=== PATIENT | female | born 1995 | race Caucasian/White ===

== ENCOUNTER 2023-05-11 19:21 | Inpatient (IN) ==
[2023-05-11] MEDS ORDERED: ALBUT/IPRATROP 3MG/0.5MG NEB 3 ML VIAL ONE (19:26)
[2023-05-11] MEDS ORDERED: ALBUT/IPRATROP 3MG/0.5MG NEB 3 ML VIAL NEB ONE (19:29)
[2023-05-11] MEDS ORDERED: SODIUM CHLORIDE 0.9% 500 ML IV SCH (19:30)
[2023-05-11] MEDS ORDERED: STAT IV STA (19:30)
[2023-05-11] MEDS ORDERED: diphenhydrAMINE 50 MG/ML VIAL ONE (19:35)
[2023-05-11] MEDS ORDERED: ONDANSETRON INJ 2 MG/ML 2 ML VIAL ONE (19:35)
[2023-05-11] MEDS ORDERED: EPINEPHrine INJ 1 MG/ML AMP ONE (19:35)
[2023-05-11] MEDS ORDERED: methylPREDNISolone 125 MG/2 ML VIAL ONE (19:35)
--- NOTE | 2023-05-11 19:35 | Emergency Department Note ---
Impression & Plan Anaphylaxis, Allergic reaction, Serious allergic reaction with severe difficult breathing ED Provider Note Provider: Matheus Eddy MD DATE OF SERVICE: 05/11/2023 CHIEF COMPLAINT: Allergic reaction HISTORY OF PRESENT ILLNESS: Patient is a 27-year-old female history of severe allergic reactions presenting here from baseball game via ambulance. Evidently visiting from the [facility]. Severe allergy to peanuts. Reports that she has about 7 different occasions in the recent past and was recently hospitalized last month. Utilize your EpiPen with the onset of allergic symptoms and di fficulty breathing and stridor and throat tightness. Maybe a little bit of nausea and round. To see if steroids as well as additional 0.3 mg IM epinephrine, 120 mg Solu-Medrol, and a DuoNeb. States maybe little improvement. Took 100 mg of oral Benadryl prior to arrival and received additional 50 mg of IV Benadryl for EMS. On arrival she states she is feeling thing and maybe a little bit better but still quite stridulous and states she is having some difficulty breathing. Denies significant rash but may be a bit itchy in the arms. later arrives. Provides additional history. PAST MEDICAL HISTORY: As noted above MEDICATIONS: Reviewed home medications SOCIAL HISTORY: from the [facility] PHYSICAL EXAM: GENERAL: alert and oriented on stretcher sounds somewhat stridorous and appears a bit fatigued. Head: normocephalic and atraumatic EYES: No injection, discharge or icterus. NECK: Trachea midline. Supple. ENT: Mucous membranes pink and moist. Mallampati 4 but no obvious significant edema of the lips or tongue LUNGS: Airway patent. No retractions. Breath sounds clear HEART: Regular tachycardia rate and rhythm. No chest wall tenderness ABDOMEN: Soft and non-tender, without guarding or rebound. SKIN: Acyanotic, warm, dry, with a few scabs on the forearms. EXTREMITIES: Without tenderness or deformity with some slight swelling to the fingers causing her wedding ring to be tight. NEUROLOGICAL: No focal deficits. No aphasia. No facial droop or slurred speech. EK bpm sinus tachycardia. No PVC or PAC. No acute ST segment elevation or depression with some baseline artifact from breathing. QTc 408. CONTINUOUS CARDIAC MONITORING: was ordered and showed a heart rate of 100s-103s bpm in sinus tachycardia Patient's laboratory studies and imaging reviewed. Differential includes Allergic reaction, anaphylaxis, urticaria, Barrios-Red syndrome, toxic epidermal necrolysis, erythema multiforme, contact dermatitis, cellulitis, as well as other pathologies. 1 view chest x-ray per my interpretation: ET tube appropriate placed without luis dence of pneumothorax. Some gaseous distention of the stomach but no free air. ED Intubation, performed by myself after discussion with the patient and her Indication stridor, anaphylaxis The patient was on 6L oxygen via NC prior to the procedure. Suction, airway equipment, RSI drugs, respiratory equipment, and appropriate personnel were prepared prior to the initiation of the procedure. A time out was taken. Induction was performed with 25mg etomidate and 150mg succinylcholine. After observing the clinical benefit of the medications, the airway was easily visualized utilizing a 3 glide scope. A 7.5 size ETT tube was placed atraumatically to 24 cm to the teeth using standard technique. The cuff inflated without signs of malfunction. There were bilateral breath sounds, positive co lormetric change, no gastric sounds, a good capnography waveform, and post procedure pulse oximetry was 100%. Post intubation sedation and paralysis was administered using Versed and fentanyl after initially considering propofol briefly. There were no apparent complications. IMPRESSION/MEDICAL DECISION MAKING: Patient with significant reported history but no records is from out of town. Received 2 doses of IM epinephrine prior to arrival. Still quite stridulous but satting well not hypotensive. Has had a significant amount of antihistamine already and has had full dose steroids already by EMS. Monitor very closely and in short order moved into room B1 for close observation and monitoring. Epinephrine infusion was started to try to help with her symptoms. Over the course of an hour had reported some increased tightness of the throat. Still stridulous and at this point discussed with her and her at bedside options. Do not have heliox as an option at the facility currently to attempt as she has responded to this in the past. As such, feel that rather than wait for any more significant worsening would proceed given her report of worsening throat tightness with intubation for airway protection. She was in agreement. Intubated here without issue. No severe edema in the oropharynx appreciated. Did not desaturate. Postintubation chest x-ray obtained initially presently on propofol drip but avoid any possible allergic response transition to fentanyl and Versed drip. ICU BAIT TIER at bedside. Oxygenating well. Question of some component this could be vocal cord dysfunction however at this time will need to the side of caution and will be monitored overnight in the ICU for improvement. Records request at facility was sent. Discussed with the hospitalist again as well as the ICU BAIT TIER for further care here. Basic blood was obtained with some mild hypokalemia as well as mild leukocytosis. Believe more reactive from the acute reaction and the nebs and steroids she is received. Tryptase was sent off for long-term follow-up. DIAGNOSIS: Anaphylaxis, stridor DISPOSITION: ICU at bedside. Hospitalist will evaluate for further care here at the hospital Critical Care I have personally spent 46 minutes of critical care time in the direct management of this patient. This includes bedside care, interpretation of diagnostic studies, and testing, discussion with consultants, patient, and family members, and other required patient management activities. These 46 minutes is in excess of all separately billable procedures. Past Med/Surg History Medical History (Updated 05/12/23 @ 01:15 by Matheus Eddy M.D.) Allergic reaction Anxiety and depression Encounter for intubation Obesity Social History Smoking Status: Never smoker Hx Alcohol Use: No Hx Substance Use: No Preferred Language: Tajik Communication Ability: Effective Telephone Operator Receptionist Required: No Beliefs That Will Affect Care: None Current Living Situation: Spouse Other Information That Helps Us Care for You: No Feels Safe at Home: Yes Safety Concerns: Feels Safe At This Time Assistive Devices: None Allergies Allergies Allergy/AdvReac Type Severity Reaction Status Date / Time peanut Allergy Severe Anaphylaxis Verified 05/11/23 20:19 soy Allergy Severe Anaphylaxis Verified 05/11/23 20:19 Home Meds Home Medications Medication Instructions Recorded Confirmed albuterol sulfate 90 mcg/actuation 2 puff inhalation Q6 PRN Shortness 05/11/23 05/11/23 aerosol inhaler Of Breath Or Wheezing plxlvsfwgtzvcti-[id number]-GS 10 ml PO Q6 PRN congestion/cough 05/11/23 05/11/23 2 mg-30 mg-10 mg/5 mL oral syrup diphenhydramine HCl 25 mg capsule 25 mg PO Q6 PRN allergies 05/11/23 05/11/23 (Banophen) epinephrine 0.3 mg/0.3 mL 0.3 mg IM ONCE PRN Anaphylaxis 05/11/23 05/11/23 injection, auto-injector hydroxyzine HCl 25 mg tablet 25 mg PO Q6 PRN Anxiety 05/11/23 05/11/23 mirtazapine 15 mg tablet 15 mg PO HS 05/11/23 05/11/23 paroxetine HCl 30 mg tablet 30 mg PO DAILY 05/11/23 05/11/23 Results & Data (ED) Vital Signs Vital Signs - 24 hr 05/11/23 19:33 05/11/23 19:34 05/11/23 20:00 Temperature 37.2 C Temperature Source Axillary Pulse Rate 126 H Pulse Rate [Finger] Respiratory Rate 41 H Respiratory Effort / Characteristics Gasping/Agonal Labored Short of Breath Respiratory Depth Shallow Blood Pressure 133/85 Blood Pressure [Right Arm] Blood Pressure Mean 101 Blood Pressure Mean [Right Arm] Pulse Oximetry 100 100 Oxygen Delivery Method Nasal Cannula Nasal Cannula Oxygen Flow Rate 6 6 Fraction of Inspired Oxygen Sepsis Recent Fever Within 48 Hours No Sepsis New/Unexplained Change in Mental Status No Sepsis Action Taken by Nursing No Action Required End-Tidal CO2 05/11/23 20:02 05/11/23 20:00 05/11/23 20:26 Temperature Temperature Source Pulse Rate Pulse Rate [Finger] 132 H 126 H Respiratory Rate 42 H 42 H Respiratory Effort / Characteristics Respiratory Depth Blood Pressure Blood Pressure [Right Arm] 141/67 H 141/67 H Blood Pressure Mean Blood Pressure Mean [Right Arm] 91 91 Pulse Oximetry 100 100 100 Oxygen Delivery Method Nasal Cannula Nasal Cannula Oxygen Flow Rate 6 6 Fraction of Inspired Oxygen Sepsis Recent Fever Within 48 Hours Sepsis New/Unexplained Change in Mental Status Sepsis Action Taken by Nursing End-Tidal CO2 05/11/23 20:32 05/11/23 20:32 Temperature Temperature Source Pulse Rate 128 H Pulse Rate [Finger] 126 H Respiratory Rate 34 H 27 H Respiratory Effort / Characteristics Respiratory Depth Blood Pressure Blood Pressure [Right Arm] 137/81 Blood Pressure Mean Blood Pressure Mean [Right Arm] 99 Pulse Oximetry 100 100 Oxygen Delivery Method Mechanical Vent Oxygen Flow Rate Fraction of Inspired Oxygen 50 Sepsis Recent Fever Within 48 Hours Sepsis New/Unexplained Change in Mental Status Sepsis Action Taken by Nursing End-Tidal CO2 38 Laboratory Data 05/11/23 19:30 05/11/23 19:30 Lab Results 05/11/23 05/11/23 Range/Units 19:30 19:30 WBC 15.73 H (4.8-10.8) K/ul RBC 4.78 (4.20-5.40) M/uL Hgb 11.7 L (12.0-16.0) g/dl Hct 37.3 (37.0-47.0) % MCV 78.0 L (80.0-100.0) fL MCH 24.5 L (25.0-34.0) pg MCHC 31.4 L (32.0-36.0) g/dL RDW Std Deviation 41.8 (36.4-46.3) fL RDW Coeff of Adeola 15.0 H (11.5-14.5) % Plt Count 447 H (130-400) K/uL MPV 9.4 (9.4-12.4) fL Immature Gran % (Auto) 0.5 % Neut % (Auto) 54.0 % Lymph % (Auto) 34.7 % [place] % (Auto) 8.5 % Eos % (Auto) 1.7 % Baso % (Auto) 0.6 % Neut # (Auto) 8.50 H (1.40-6.50) K/uL Lymph # (Auto) 5.46 H (1.2-3.4) K/uL [place] # (Auto) 1.33 H (0.11-0.59) K/uL Eos # (Auto) 0.26 (0-0.50) K/uL Baso # (Auto) 0.10 (0-0.2) K/uL Immature Gran # (Auto) 0.08 (0.01-0.20) K/uL Sodium 138 (136-145) mmol/L Potassium 2.8 L (3.5-5.1) mmol/L Chloride 104 (98-107) mmol/L Carbon Dioxide 24 (21-32) mmol/L Anion Gap 10 (3-11) BUN 15 (6-23) mg/dl Creatinine 0.89 (0.6-1.2) mg/dl Est Cr Clr Drug Dosing 119.3 ml/min Est GFR ( Amer) 101.5 ml/min Est GFR (Non-Af Amer) 87.6 ml/min BUN/Creatinine Ratio 16.9 (10-20) Glucose 135 H (70-99(Fasting)) mg/dl Calcium 9.9 (8.6-10.3) mg/dl Total Bilirubin 0.3 (0.2-1.0) mg/dl AST 24 (13-39) U/L ALT 23 (7-52) U/L Alkaline Phosphatase 78 (34-104) U/L Total Protein 7.4 (6.0-8.3) gm/dl Albumin 4.5 (3.4-5.0) gm/dl Globulin 2.9 (2.5-4.0) gm/dl Albumin/Globulin Ratio 1.6 (0.9-2) Administered Medications Albuterol (Albuterol 0.083% Nebu Soln 3 Ml Vial) 2.5 mg NEB Q6R PRN; Protocol PRN Reason: wheeze Stop: 06/10/23 22:27 Last Admin: 05/11/23 22:49 Dose: 2.5 mg Documented By: RASHID Fentanyl Citrate (Fentanyl Bolus From Bag) 50 mcg IV Q60M PRN PRN Reason: Pain or Agitation Stop: 05/25/23 20:34 Last Admin: 05/11/23 23:03 Dose: 50 mcg Documented By: MURIEL Co-signed By: AMB Admin: 05/11/23 21:45 Dose: 50 mcg Documented By: THOEDORE Co-signed By: nail feeder: 05/11/23 20:58 Dose: 50 mcg Documented By: THEODORE Co-signed By: MED Epinephrine HCl 4 mg/ Sodium (Chloride) 254 mls @ 0 mls/hr IV .Q0M RUBIN; Protocol Stop: 06/10/23 19:29 Last Infusion: 05/12/23 00:20 Dose: 0 mcg/kg/min, 0 mls/hr Documented By: Infusion: 05/11/23 21:45 Dose: 0 mcg/kg/min, 0 mls/hr Documented By: Admin: 05/11/23 19:50 Dose: 0.05 mcg/kg/min, 23.6 mls/hr Documented By: THEODORE Midazolam HCl (Versed) 125 mg in 250 mls @ 4 mls/hr IV .Q32G56P PRN; Protocol PRN Reason: Agitation Stop: 06/10/23 20:34 Last Titration: 05/11/23 21:44 Dose: 2 mg/hr, 4 mls/hr Documented By: THEODORE Co-signed By: MED Titration: 05/11/23 21:11 Dose: 1.5 mg/hr, 3 mls/hr Documented By: THEODORE Co-signed By: nail feeder: 05/11/23 20:58 Dose: 1 mg/hr, 2 mls/hr Documented By: THEODORE Co-signed By: SUKUMAR Fentanyl Citrate (Fentanyl Citrate) 2,500 mcg in 250 mls @ 10 mls/hr IV .Q25H RUBIN; Protocol Stop: 05/25/23 20:44 Last Titration: 05/11/23 21:46 Dose: 100 mcg/hr, 10 mls/hr Documented By: THEODORE Co-signed By: MED Titration: 05/11/23 21:10 Dose: 75 mcg/hr, 7.5 mls/hr Documented By: THEODORE Co-signed By: nail feeder: 05/11/23 20:58 Dose: 50 mcg/hr, 5 mls/hr Documented By: THEODORE Co-signed By: SUKUMAR Midazolam HCl (Midazolam Bolus From Bag) 2 mg IV Q60M PRN PRN Reason: Sedation Stop: 06/10/23 20:34 Last Admin: 05/11/23 23:04 Dose: 2 mg Documented By: MURIEL Co-signed By: AMB Admin: 05/11/23 21:44 Dose: 2 mg Documented By: THEODORE Co-signed By: nail feeder: 05/11/23 20:58 Dose: 2 mg Documented By: THEODORE Co-signed By: MED Discontinued Medications Albuterol (Albut/Ipratrop 3mg/0.5mg Neb 3 Ml Vial) Confirm Administered Dose 3 ml .ROUTE .STK-MED ONE Stop: 05/11/23 19:27 Last Admin: 05/11/23 19:27 Dose: 3 ml Documented By: THEODORE Albuterol (Albut/Ipratrop 3mg/0.5mg Neb 3 Ml Vial) 12 ml NEB ONE ONE; Protocol Stop: 05/11/23 19:30 Last Admin: 05/11/23 19:32 Dose: Not Given Documented By: THEODORE Diphenhydramine HCl (Diphenhydramine 50 Mg/Ml Vial) Confirm Administered Dose 50 mg .ROUTE .STK-MED ONE Stop: 05/11/23 19:36 Last Admin: 05/11/23 19:51 Dose: Not Given Documented By: THEODORE Epinephrine HCl (Epinephrine Inj 1 Mg/Ml Amp) Confirm Administered Dose 1 mg .ROUTE .STK-MED ONE Stop: 05/11/23 19:36 Last Admin: 05/11/23 19:51 Dose: Not Given Documented By: THEODORE Etomidate (Etomidate 2 Mg/Ml 20 Ml Vial) 25 mg IV ONCE ONE Stop: 05/11/23 21:09 Last Admin: 05/11/23 20:24 Dose: 25 mg Documented By: THEODORE Fentanyl Citrate (Fentanyl Citrate Pf 100 Mcg/2 Ml Vial) 50 mcg IV NOW STA Stop: 05/11/23 20:35 Last Admin: 05/11/23 20:35 Dose: 50 mcg Documented By: THEODORE Fentanyl Citrate (Fentanyl Citrate 2,500 Mcg/250 Ml Bag) Confirm Administered Dose 2,500 mcg IV .STK-MED ONE Stop: 05/11/23 20:41 Last Admin: 05/11/23 21:02 Dose: Not Given Documented By: THEODORE Sodium Chloride (Nss) 500 mls @ 999 mls/hr IV .Q31M [facility] Stop: 05/11/23 20:00 Last Infusion: 05/11/23 20:06 Dose: 0 mls/hr Documented By: Admin: 05/11/23 19:33 Dose: 999 mls/hr Documented By: THEODORE Propofol (Diprivan) 1,000 mg in 100 mls @ 0 mls/hr IV .Q0M RUBIN; Protocol Stop: 05/14/23 21:14 Last Titration: 05/12/23 00:22 Dose: 0 mcg/kg/min, 0 mls/hr Documented By: Titration: 05/11/23 20:58 Dose: 0 mcg/kg/min, 0 mls/hr Documented By: Titration: 05/11/23 20:34 Dose: 40 mcg/kg/min, 29.7 mls/hr Documented By: Admin: 05/11/23 20:29 Dose: 25 mcg/kg/min, 18.6 mls/hr Documented By: THEODORE Co-signed By: MED Famotidine (Pepcid 20mg Iv Push) 20 mg in 5 mls @ 2.5 mls/min IV NOW STA Stop: 05/11/23 22:15 Last Admin: 05/11/23 23:03 Dose: 2.5 mls/min Documented By: LLP Methylprednisolone (Methylprednisolone 125 Mg/2 Ml Vial) Confirm Administered Dose 125 mg .ROUTE .STK-MED ONE Stop: 05/11/23 19:36 Last Admin: 05/11/23 19:51 Dose: Not Given Documented By: THEODORE Midazolam HCl (Midazolam Hcl 5 Mg/Ml 2ml Vial) 2 mg IV ONCE ONE Stop: 05/11/23 21:12 Last Admin: 05/11/23 20:31 Dose: 2 mg Documented By: THEODORE [place] (Stat Iv) 1 each N/A NOW STA Stop: 05/11/23 19:31 Last Admin: 05/11/23 19:34 Dose: 1 each Documented By: THEODORE [place] (Patient's Height &/Or Weight Needed) 1 each N/A NOW STA Stop: 05/11/23 19:42 Last Admin: 05/11/23 19:42 Dose: 1 each Documented By: THEODORE [place] (Rapid Sequence Induction Bag) Confirm Administered Dose 1 each N/A .STK-MED ONE Stop: 05/11/23 20:08 Last Admin: 05/11/23 23:05 Dose: Not Given Documented By: MURIEL [place] (Stat Iv Infusion Titration Per Protocol) 1 each N/A NOW STA Stop: 05/11/23 20:37 Last Admin: 05/11/23 23:05 Dose: Not Given Documented By: MURIEL [place] (Stat Iv Infusion Titration Per Protocol) 1 each N/A NOW STA Stop: 05/11/23 21:15 Last Admin: 05/11/23 23:04 Dose: Not Given Documented By: MURIEL Ondansetron HCl (Ondansetron Inj 2 Mg/Ml 2 Ml Vial) Confirm Administered Dose 4 mg .ROUTE .STK-MED ONE Stop: 05/11/23 19:36 Last Admin: 05/11/23 19:52 Dose: Not Given Documented By: THEODORE Potassium Chloride (Potassium Chloride 20 Meq/15 Ml Udc) 60 meq PO NOW STA Stop: 05/11/23 23:11 Last Admin: 05/11/23 23:24 Dose: 60 meq Documented By: MURIEL Propofol (Propofol Iv Emulsion 10 Mg/Ml 100 Ml Vial) Confirm Administered Dose 1,000 mg IV .STK-MED ONE Stop: 05/11/23 20:14 Last Admin: 05/11/23 21:01 Dose: Not Given Documented By: THEODORE Propofol (Propofol Bolus From Bag) 20 mg IV Q5M PRN PRN Reason: Sedation Stop: 05/14/23 21:13 Last Admin: 05/11/23 20:49 Dose: 10 mg Documented By: THEODORE Co-signed By: nail feeder: 05/11/23 20:33 Dose: 10 mg Documented By: THEODORE Co-signed By: SUKUMAR Succinylcholine Chloride (Succinylcholine Chloride 20 Mg/Ml 10 Ml Vial) 150 mg IV ONCE ONE Stop: 05/11/23 21:10 Last Admin: 05/11/23 20:25 Dose: 150 mg Documented By: THEODORE Imaging Data Radiologist's Impression: Chest X-Ray 05/11/23 19:29 XR chest 1V portable HISTORY: 27 years-old Female sob acute shortness of breath COMPARISON: None TECHNIQUE: AP view of the chest FINDINGS: Cardiac silhouette is upper limits of normal in size. Lungs are hypoinflated. Mild bibasilar densities. No pneumothorax, pleural effusion or overt pulmonary edema. Bones appear grossly intact. IMPRESSION: Mild bibasilar opacities likely secondary to atelectasis/summation density. Pneumonia considered less likely. ACT 112: Negative or not required by law. The above report was generated using voice recognition software. It may contain grammatical, syntax or spelling errors. Electronically signed by: Lavon Pepe M.D. 05/11/2023 7:49 PM Discharge Plan Visit Data Chief Complaint: Allergic Reaction Stated Complaint: ALLERGIC REACTION/RESP. DISTRESS ED Provider: Matheus Eddy Discharge Problem: Anaphylaxis, Allergic reaction, Serious allergic reaction with severe difficult breathing Patient Disposition: Admitted As Inpatient Discharge Instructions Interventions: ED Discharge Assessment Last Done: 05/11/23 22:27
[2023-05-11] MEDS ORDERED: Patient's HEIGHT &/or WEIGHT Needed STA (19:41)
--- NOTE | 2023-05-11 19:51 | XRay Report ---
XR chest 1V portable HISTORY: 27 years-old Female sob acute shortness of breath COMPARISON: None TECHNIQUE: AP view of the chest FINDINGS: Cardiac silhouette is upper limits of normal in size. Lungs are hypoinflated. Mild bibasilar densitie s. No pneumothorax, pleural effusion or overt pulmonary edema. Bones appear grossly intact. IMPRESSION: Mild bibasilar opacities likely secondary to atelectasis/summation density. Pneumonia con sidered less likely. ACT 112: Negative or not required by law. The above report was generated using voice recognition software. It may contain grammatical, syntax o r spelling errors. Electronically signed by: Lavon Pepe M.D. 05/11/2023 7:49 PM
[2023-05-11 19:52] LABS: Hematocrit (blood only) 37.3 % (37.0-47.0); Hemoglobin 11.7 g/dl (12.0-16.0); Mean Corpuscular Hemoglobin 24.5 pg (25.0-34.0); Mean Corpuscular Hgb Conc 31.4 g/dL (32.0-36.0); Mean Platelet Volume 9.4 fL (9.4-12.4); Platelet Count 447 K/uL (130-400); RDW Standard Deviation 41.8 fL (36.4-46.3); Red Blood Count 4.78 M/uL (4.20-5.40); White Blood Count 15.73 K/ul (4.8-10.8)
[2023-05-11] MEDS ORDERED: RAPID SEQUENCE INDUCTION BAG ONE (20:07)
[2023-05-11 20:12] LABS: Albumin Globulin Ratio 1.6 (0.9-2); Albumin Level 4.5 gm/dl (3.4-5.0); BUN Creatinine Ratio 16.9 (10-20); Bilirubin,Total 0.3 mg/dl (0.2-1.0); Calcium 9.9 mg/dl (8.6-10.3); Creatinine Clr Calc Pharmacy 119.3 ml/min; Est GFR (African American) 101.5 ml/min; Est GFR (Non-African American) 87.6 ml/min; Globulin 2.9 gm/dl (2.5-4.0); Potassium 2.8 mmol/L (3.5-5.1); Total Protein 7.4 gm/dl (6.0-8.3)
[2023-05-11] MEDS ORDERED: PROPOFOL IV EMULSION 10 MG/ML 100 ML VIAL IV ONE (20:13)
[2023-05-11 20:14] LABS: Basophils % (auto) 0.6 %; Eosinophils # (auto) 0.26 K/uL (0-0.50); Eosinophils % (auto) 1.7 %; Immature Granulocytes # (auto) 0.08 K/uL (0.01-0.20); Immature Granulocytes % (auto) 0.5 %; Lymphocytes # (auto) 5.46 K/uL (1.2-3.4); Lymphocytes % (auto) 34.7 %; Monocytes # (auto) 1.33 K/uL (0.11-0.59); Monocytes % (auto) 8.5 %
[2023-05-11] MEDS: PROPOFOL BOLUS FROM BAG IV PRN ×2 (20:33→20:49)
[2023-05-11] MEDS ORDERED: fentaNYL citrate PF 100 MCG/2 ML VIAL IV STA (20:34)
[2023-05-11] MEDS ORDERED: MIDAZOLAM HCL 125 MG/250 ML BAG IV PRN (20:35)
[2023-05-11] MEDS ORDERED: STAT IV Infusion **Titration per Protocol STA ×3 (20:35→21:14)
[2023-05-11] MEDS ORDERED: PROPOFOL BOLUS FROM BAG IV PRN (20:36)
[2023-05-11] MEDS ORDERED: fentaNYL citrate 2,500 MCG/250 ML BAG IV ONE (20:40)
[2023-05-11] MEDS ORDERED: propofoL 1,000 MG/100 ML VIAL IV SCH ×2 (20:45→21:15)
[2023-05-11] MEDS ORDERED: fentaNYL citrate 2,500 MCG/250 ML BAG IV SCH (20:45)
--- NOTE | 2023-05-11 20:57 | Critical Care Consultation ---
Date of Consultation May 11, 2023 Assessment & Plan (1) Allergic reaction: (2) Anxiety and depression: Plan Reason Critically Ill: Arrives to EMD for complaints of allergic reaction, intubated for stridor and airway protection. To the ICU mechanically intubated and sedated Neuro - Sedated for mechanical ventilation, Anxiety/Depression CAM ICU: NEGATIVE - RASS goal -1 to -2 prevent high airway pressures and coughing - Fentanyl and Versed addition of Precedex if needed Cardiac - No acute needs - Patient is with normal blood pressures- currently on epinephrine infusion for concern of anaphylaxis - wean as able Respiratory - Allergic reaction/anaphylaxis, Mechanically ventilated and intubated - DDX: Anaphylaxis with airway compromise vs. VCD - She was induced with etomidate followed by succinylcholine- with sedation following the etomidate prior to paralytic- stridor did resolve and no obstruction of upper airway heard- ETcO2 remained 40s and SPo2 at 100% - ARDS.net low PEEP, HIGH FIo2 algorithm - KATARINA nebulizers prn and scheduled - Post intubation with normal PIPS and no auto-peep - Consider fiberoptic evaluation of vocal chords following extubation - wean as able from ventilator- daily SBT GI - No acute needs RENAL/LYTES - Hypokalemia - ICU Electrolyte protocol - No acute needs - Krueger catheter while intubated and sedated ENDO - Elevated serum glucose without diagnosis of diabetes - ICU hyperglycemia protocol - HGB A1C in AM HEME - Allergic response/anaphylaxis - Leukocytosis - likely stress response with normal NLR - EOS 0.26 (1.7%) - Will send RAST panel, Tryptase - Continue Famotidine - Wean Epi to off as hemodynamics allow - Hold on steroids at this time as wheezing and further systemic symptoms are resolved ID - No concern for infection at this time - UA will send with culture - PCT pending LINES/IV ACCESS - PIV, Krueger Continue use of these lines DVT PROPHYLAXIS - SCDS, Lovenox DISPO: ICU while mechanically intubated and sedated I have personally spent 50 minutes of critical care time in the direct management of this patient. This is a life/limb threatening event. This includes time spent evaluating patient, direct bedside care, chart review, placing orders, interpretation of diagnostic studies, discussion with consultants, patient, and family members, as well as other required patient management activities. This time is exclusive of all separately billable procedures, and separate from and in addition to any other critical care service time. Thank you for allowing us to participate in the care of this patient. Please refer to my attending physician's documentation for any further recommendations. History of Present Illness Reason for Consultation: Intubated and mechanically ventilated for allergic reaction vs. VCD Requesting Physician: Matheus Eddy History of Present Illness 27 YOF not from the area: Notes medical history of allergies, anxiety/depression, obesity. She reported to the EMD today for complaints of feeling her throat closing and difficulty breathing. Patient reports that she has been intubated 4 times over the past few months because of this. She reports that she does have an epi-pen and used it today without effect. She believes that she may have touched something with soy in it while out to eat at a resturaunt. She reports feeling itchy in her mouth, periorbital area and around her eyes as well as difficulty swallowing her secretions. In the EMD she was with ETCo2 monitoring which was 40s with good square waveform without evid ence of air trapping, SPo2 of 100% and RR 20s. She was with audible inhilatory wheeze in the upper airways. She was given Benadryl, Albuterol hour long neb, 2 IM doses of EPI as well as IV Epi infusion at 0.5mcg/kg/min. She felt as her airway was getting worse, so she was intubated for airway protection. The patient was able to phonate and sing "Mirna had a little mo" without stridor or wheeze noted and in full sentences, however voice remained muffled. She was initially on Propofol infusion, this was changed out for versed and fentanyl infusions with a recorded allergy to soy and peanuts. Patient was with adequate VT post intubaiton, no wheezing, and peak pressure of 17. Patient will be admitted to ICU for further evaluation and workup. Likely able to extubate within next 24 hours. Further history and family history not reviewed as patient was being prepped for intubation and left with 3 small children. CODE: FULL Allergies Allergy/AdvReac Type Severity Reaction Status Date / Time peanut Allergy Severe Anaphylaxis Verified 05/11/23 20:19 soy Allergy Severe Anaphylaxis Verified 05/11/23 20:19 Home Medications Medication Instructions Recorded Confirmed Type albuterol sulfate 90 mcg/actuation 2 puff inhalation Q6 PRN Shortness 05/11/23 05/11/23 History aerosol inhaler Of Breath Or Wheezing amukxubymcnvmlw-riyfymhuwrmzyll-PY 10 ml PO Q6 PRN congestion/cough 05/11/23 05/11/23 History 2 mg-30 mg-10 mg/5 mL oral syrup diphenhydramine HCl 25 mg capsule 25 mg PO Q6 PRN allergies 05/11/23 05/11/23 History (Banophen) epinephrine 0.3 mg/0.3 mL 0.3 mg IM ONCE PRN Anaphylaxis 05/11/23 05/11/23 History injection, auto-injector hydroxyzine HCl 25 mg tablet 25 mg PO Q6 PRN Anxiety 05/11/23 05/11/23 History mirtazapine 15 mg tablet 15 mg PO HS 05/11/23 05/11/23 History paroxetine HCl 30 mg tablet 30 mg PO DAILY 05/11/23 05/11/23 History Patient History Medical History (Updated 05/11/23 @ 22:16 by Ashley Dudley MD) Allergic reaction Anxiety and depression Encounter for intubation Obesity Social History Smoking Status: Never smoker Hx Alcohol Use: No Hx Substance Use: No Preferred Language: Kosovan Communication Ability: Effective 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 Beliefs That Will Affect Care: None Current Living Situation: Spouse Other Information That Helps Us Care for You: No Feels Safe at Home: Yes Safety Concerns: Feels Safe At This Time Assistive Devices: None Review of Systems Review of Systems: REVIEW OF SYSTEMS: Reported as per HPI no further review obtained secondary to intubation Physical Exam Physical Exam: PHYSICAL EXAM: General: awake, drowsy appearing Head: Normocephalic, atraumatic ENT: PERRLA, EOMI, no pharyngeal exudate, mucous membranes moist, tongue not s wollen, oral airway without lesions or blisters Neuro: AAO x 3, speech with muffled voice, strength intact bilaterally 5/5, sensation intact and equal all extremities and dermatomes, no focal deficits Chest: equal rise and fall of the chest, no accessory muscle use, inspiratory stridor, with inspiratory wheeze in upper airway, normal capnography and oximetry Cardiac: Regular rate and rhythm, telemetry reviewed- sinus tachycardia, skin warm dry, cap refill <3 seconds, peripheral pulses +2 no JVD, no murmur, no edema GI: NABS x 4 quadrants, soft, nontender to palpation, no rebound, guarding or tenderness : krueger to be placed Psych: Normal mood and affect Skin: no rash or erythema, no wheels or hives Results & Data Results & Data Vital Signs (Past 12 Hours) Vital Signs Temp Pulse Pulse Resp BP BP Pulse Ox 05/11/23 20:50 123 H 24 140/64 100 05/11/23 20:32 128 H 27 H 100 05/11/23 20:32 126 H 34 H 137/81 100 05/11/23 20:26 100 05/11/23 20:00 126 H 42 H 141/67 H 100 05/11/23 20:02 132 H 42 H 141/67 H 100 05/11/23 19:34 37.2 C 126 H 41 H 133/85 100 05/11/23 19:33 100 O2 Del Method O2 Flow Rate FiO2 05/11/23 20:50 Mechanical Vent 05/11/23 20:32 50 05/11/23 20:32 Mechanical Vent 05/11/23 20:26 05/11/23 20:00 Nasal Cannula 6 05/11/23 20:02 Nasal Cannula 6 05/11/23 19:34 Nasal Cannula 6 05/11/23 19:33 Nasal Cannula 6 Laboratory Results Abnormal lab results 05/11/23 05/11/23 Range/Units 19:30 19:30 WBC 15.73 H (4.8-10.8) K/ul Hgb 11.7 L (12.0-16.0) g/dl MCV 78.0 L (80.0-100.0) fL MCH 24.5 L (25.0-34.0) pg MCHC 31.4 L (32.0-36.0) g/dL RDW Coeff of Adeola 15.0 H (11.5-14.5) % Plt Count 447 H (130-400) K/uL Neut # (Auto) 8.50 H (1.40-6.50) K/uL Lymph # (Auto) 5.46 H (1.2-3.4) K/uL [place] # (Auto) 1.33 H (0.11-0.59) K/uL Potassium 2.8 L (3.5-5.1) mmol/L Glucose 135 H (70-99(Fasting)) mg/dl Diagnostic Findings Chest X-Ray 05/11/23 19:29 XR chest 1V portable HISTORY: 27 years-old Female sob acute shortness of breath COMPARISON: None TECHNIQUE: AP view of the chest FINDINGS: Cardiac silhouette is upper limits of normal in size. Lungs are hypoinflated. Mild bibasilar densities. No pneumothorax, pleural effusion or overt pulmonary edema. Bones appear grossly intact. IMPRESSION: Mild bibasilar opacities likely secondary to atelectasis/summation density. Pneumonia considered less likely. ACT 112: Negative or not required by law. The above report was generated using voice recognition software. It may contain grammatical, syntax or spelling errors. Electronically signed by: Lavon Pepe M.D. 05/11/2023 7:49 PM Medications Administered Home Medications albuterol sulfate 90 mcg/actuation aerosol inhaler 2 puff inhalation Q6 PRN Shortness Of Breath Or Wheezing 05/11/23 [History Confirmed 05/11/23] yobyriogxdgamab-kmwpvmjawfbetry-ZZ 2 mg-30 mg-10 mg/5 mL oral syrup 10 ml PO Q6 PRN congestion/cough 05/11/23 [History Confirmed 05/11/23] diphenhydramine HCl 25 mg capsule (Banophen) 25 mg PO Q6 PRN allergies 05/11/23 [History Confirmed 05/11/23] epinephrine 0.3 mg/0.3 mL injection, auto-injector 0.3 mg IM ONCE PRN Anaphylaxis 05/11/23 [History Confirmed 05/11/23] hydroxyzine HCl 25 mg tablet 25 mg PO Q6 PRN Anxiety 05/11/23 [History Confirmed 05/11/23] mirtazapine 15 mg tablet 15 mg PO HS 05/11/23 [History Confirmed 05/11/23] paroxetine HCl 30 mg tablet 30 mg PO DAILY 05/11/23 [History Confirmed 05/11/23] Active Medications Fentanyl Citrate (Fentanyl Bolus From Bag) 50 mcg IV Q60M PRN PRN Reason: Pain or Agitation Stop: 05/25/23 20:34 Last Admin: 05/11/23 20:58 Dose: 50 mcg Epinephrine HCl 4 mg/ Sodium (Chloride) 254 mls @ 23.603 mls/hr IV .[id number] [facility]; Protocol Stop: 06/10/23 19:29 Last Admin: 05/11/23 19:50 Dose: 0.05 mcg/kg/min, 23.6 mls/hr Midazolam HCl (Versed) 125 mg in 250 mls @ 2 mls/hr IV .Q96H PRN; Protocol PRN Reason: Agitation Stop: 06/10/23 20:34 Last Admin: 05/11/23 20:58 Dose: 1 mg/hr, 2 mls/hr Fentanyl Citrate (Fentanyl Citrate) 2,500 mcg in 250 mls @ 5 mls/hr IV .Q50H [facility]; Protocol Stop: 05/25/23 20:44 Last Admin: 05/11/23 20:58 Dose: 50 mcg/hr, 5 mls/hr Midazolam HCl (Midazolam Bolus From Bag) 2 mg IV Q60M PRN PRN Reason: Sedation Stop: 06/10/23 20:34 Last Admin: 05/11/23 20:58 Dose: 2 mg Succinylcholine Chloride (Succinylcholine Chloride 20 Mg/Ml 10 Ml Vial) 150 mg IV ONCE ONE Stop: 05/11/23 21:10 Last Admin: 05/11/23 21:09 Dose: 150 mg Coding Level of Care Code 17728 CRITICAL CARE 1ST 30-74M Diagnoses Allergic reaction T78.40XA Anxiety and depression F41.9; F32.A
[2023-05-11] MEDS: MIDAZOLAM BOLUS FROM BAG IV PRN ×3 (20:58→23:04)
[2023-05-11] MEDS: fentaNYL BOLUS from BAG IV PRN ×3 (20:58→23:03)
--- NOTE | 2023-05-11 21:07 | History & Physical Report ---
Date of Service May 11, 2023 Assessment & Plan (1) Allergic reaction: Plan: 27 F with no significant past medical history, who presented with difficulty breathing, presumed secondary to allergic reaction. Now admitted to the ICU following intubation for continued management. Allergic reaction/difficulty breathing -Symptoms started while at baseball game. Presumed culprit soybean oil and fries she consumed at said game. History of multiple intubations (?) Which raises suspicion for vocal cord/laryngeal weakness vs true anaphylactic reaction. -Leukocytosis (WBC-15.37), hypokalemia (K-2.8) on initial lab. -S/p multiple EpiPen administrations, epinephrine drip, IV Solu-Medrol, and DuoNeb treatments in the ambulance and in the ED prior to intubation. -Intubated in the ED following evaluation by ED physician, critical care pr ovider due to concern for vocal cord weakness. -Admitted to ICU. * Admitted to ICU. Continued management per ICU protocol. Appreciate recs. Hypokalemia -Potassium 2.8 on admission. No EKG abnormalities (sinus tach) on initial evaluation. * Trend a.m. labs; replete as indicated. Anxiety and depression -Patient on mirtazapine 15 mg p.o. at bedtime, with hydroxyzine 25 mg p.o. every 6 hours as needed for episodic anxiety. -Stopped on admission, as patient intubated. * Management per ICU protocol. Code: Full code Dispo: ICU FEN/GI: NPO. Management otherwise per ICU DVT Prophylaxis: Per ICU protocol PT/OT: Consults: Critical care Case Management: (2) Serious allergic reaction with severe difficult breathing: (3) Anxiety and depression: (4) Hypokalemia: History of Present Illness Primary Care Provider: KARSTEN Mccall is a 27-year-old woman with no significant past medical history who presented to the hospital from a baseball game via stretcher with a complaint of difficulty breathing and concern for possible allergic reaction. Per ED signout, she believes she may have consumed fries with soybean oil, which may have been the culprit as she has a nut allergy. In the ED, she received multiple doses of epinephrine via EpiPen, DuoNeb treatments, and IV Solu-Medrol. Initial CXR noted mild bibasilar opacities likely secondary to atelectasis/summation density. He was also noted to be stridorous on lung auscultation by ED physician. She was placed on an epinephrine drip and was intubated due to concern for airway compromise (patient had mentioned in the ED she had been intubated approximately 7 times, raising concerns for vocal cord weakness/injury). Critical care was then consulted for evaluationthey agreed patient should be transferred to the ICU for monitoring of her respiratory situation. Allergies Allergy/AdvReac Type Severity Reaction Status Date / Time peanut Allergy Severe Anaphylaxis Verified 05/11/23 20:19 soy Allergy Severe Anaphylaxis Verified 05/11/23 20:19 Home Medications Medication Instructions Recorded Confirmed Type albuterol sulfate 90 mcg/actuation 2 puff inhalation Q6 PRN Shortness 05/11/23 05/11/23 History aerosol inhaler Of Breath Or Wheezing krpmfpvvoaqtiak-yquqmtkqvyxkvoe-CM 10 ml PO Q6 PRN congestion/cough 05/11/23 05/11/23 History 2 mg-30 mg-10 mg/5 mL oral syrup diphenhydramine HCl 25 mg capsule 25 mg PO Q6 PRN allergies 05/11/23 05/11/23 History (Banophen) hydroxyzine HCl 25 mg tablet 25 mg PO Q6 PRN Anxiety 05/11/23 05/11/23 History mirtazapine 15 mg tablet 15 mg PO HS 05/11/23 05/11/23 History paroxetine HCl 30 mg tablet 30 mg PO DAILY 05/11/23 05/11/23 History epinephrine 0.3 mg/0.3 mL 0.3 mg (0.3 mL) IM ONCE PRN 05/12/23 Rx injection, auto-injector Anaphylaxis #2 ea Past Med/Surg History Medical History (Updated 05/12/23 @ 17:57 by Dayton Canales MD) Allergic reaction Anxiety and depression Encounter for intubation Obesity Social History Smoking Status: Never smoker Hx Alcohol Use: No Hx Substance Use: No Preferred Language: Luxembourger Communication Ability: Effective 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 Ventilator set at 50% FiO2. HEENT: PERRLA. Normal conjunctiva, anicteric sclera. Oropharynx normal. Respiratory: Tachypneic. Auscultation compromised by mechanical ventilator. Cardiovascular: Sinus tachycardia. Results & Data Results & Data Vital Signs (Past 12 Hours) Vital Signs Temp Pulse Pulse Resp BP BP Pulse Ox 05/11/23 20:50 123 H 24 140/64 100 05/11/23 20:32 128 H 27 H 100 05/11/23 20:32 126 H 34 H 137/81 100 05/11/23 20:26 100 05/11/23 20:00 126 H 42 H 141/67 H 100 05/11/23 20:02 132 H 42 H 141/67 H 100 05/11/23 19:34 37.2 C 126 H 41 H 133/85 100 05/11/23 19:33 100 O2 Del Method O2 Flow Rate FiO2 05/11/23 20:50 Mechanical Vent 05/11/23 20:32 50 05/11/23 20:32 Mechanical Vent 05/11/23 20:26 05/11/23 20:00 Nasal Cannula 6 05/11/23 20:02 Nasal Cannula 6 05/11/23 19:34 Nasal Cannula 6 05/11/23 19:33 Nasal Cannula 6 Critical Care Time 40 minutes Supervising Physician Co-Signing Physician Notes Attending addendum: I have physically seen this patient, have supervised the medical residents activities, and agree with the H&P unless as otherwise noted. Assessment and Plan: Allergic reaction- History of multiple intubations She consumed some fries at a baseball game, and then became short of breath, and question of vocal cord/laryngeal spasm Patient did require intubation in the emergency department, after an adequate response to multiple EpiPen administrations, epinephrine drip, IV Solu-Medrol and DuoNeb treatments Patient admitted to the ICU on steroids, IV Benadryl, IV famotidine and epinephrine drip For future reference, family to be informed that the patient should not be eating foods and situations where the exact nature of food cannot be controlled She should follow-up with [facility] Zofran 4 mg IV every 6 hours as needed Famotidine 20 mg IV every 12 hours Benadryl 50 mg IV every 6 hours Dexamethasone/Solu-Medrol IV as noted Consult ICU unix administrator team Hypokalemia potassium 2.8 on admission Replacing with IV fluids and recheck in a.m. Resident Activity Tracking Resident Involvement: Resident Care Provided Care Provided: Adult [facility]
[2023-05-11] MEDS ORDERED: ETOMIDATE 2 MG/ML 20 ML VIAL IV ONE (21:08)
[2023-05-11] MEDS ORDERED: SUCCINYLCHOLINE CHLORIDE 20 MG/ML 10 ML VIAL IV ONE (21:09)
[2023-05-11] MEDS ORDERED: MIDAZOLAM HCL 5 MG/ML 2ML VIAL IV ONE (21:11)
[2023-05-11] MEDS ORDERED: FAMOTIDINE 20MG IV PUSH 20 MG/5 ML SYR IV STA (22:14)
[2023-05-11] MEDS ORDERED: ALBUTEROL 0.083% NEBU SOLN 3 ML VIAL NEB PRN (22:28)
[2023-05-11] MEDS ORDERED: POTASSIUM CHLORIDE 20 MEQ/15 ML UDC PO STA (23:10)
[2023-05-12] MEDS: fentaNYL BOLUS from BAG IV PRN (02:18)
[2023-05-12] MEDS: MIDAZOLAM BOLUS FROM BAG IV PRN (02:20)
[2023-05-12 02:28] LABS: iSTAT Allen Test Pass; iSTAT Art Bld Gas pCO2 Correct 48 mmHg (35-46); iSTAT Art Bld Gas pH Corrected 7.292 (7.35-7.45); iSTAT Arterial Blood Gas HCO3 24 meg/L (19-24); iSTAT Arterial Blood Gas pCO2 50 mmHg (35-46); iSTAT Arterial Blood Gas pH 7.28 (7.35-7.45); iSTAT Arterial Blood Gas pO2 73 mmHg (80-95); iSTAT Arterial Blood Gas pO2 C 70; iSTAT Carbon Dioxide 25 mmol/L (24-31); iSTAT FiO2 35 %; iSTAT Hematocrit 35 % (37-47); iSTAT Hemoglobin 11.9 g/dl (12.0-16.0); iSTAT Potassium 5.4 mmol/L (3.3-5.0); iSTAT Site R Radial; iSTAT Sodium 137 mmol/L (135-144)
[2023-05-12 05:08] LABS: Hematocrit (blood only) 35.1 % (37.0-47.0); Hemoglobin 11.2 g/dl (12.0-16.0); Mean Corpuscular Hemoglobin 24.7 pg (25.0-34.0); Mean Corpuscular Hgb Conc 31.9 g/dL (32.0-36.0); Mean Corpuscular Volume 77.3 fL (80.0-100.0); Mean Platelet Volume 9.9 fL (9.4-12.4); Platelet Count 272 K/uL (130-400); RDW Coefficient of Variation 14.8 % (11.5-14.5); RDW Standard Deviation 41.1 fL (36.4-46.3); Red Blood Count 4.54 M/uL (4.20-5.40); White Blood Count 15.93 K/ul (4.8-10.8)
[2023-05-12 05:19] LABS: BUN Creatinine Ratio 21.5 (10-20); Calcium 9.5 mg/dl (8.6-10.3); Creatinine Clr Calc Pharmacy 130.6 ml/min; Est GFR (African American) 117.2 ml/min; Est GFR (Non-African American) 101.2 ml/min; Phosphorus 1.8 mg/dl (2.5-4.9); Potassium 5.4 mmol/L (3.5-5.1)
[2023-05-12 05:41] LABS: Basophils # (auto) 0.02 K/uL (0-0.2); Basophils % (auto) 0.1 %; Immature Granulocytes # (auto) 0.08 K/uL (0.01-0.20); Immature Granulocytes % (auto) 0.5 %; Lymphocytes # (auto) 0.66 K/uL (1.2-3.4); Lymphocytes % (auto) 4.1 %; Monocytes # (auto) 0.13 K/uL (0.11-0.59); Monocytes % (auto) 0.8 %; Neutrophils # (auto) 15.04 K/uL (1.40-6.50); Neutrophils % (auto) 94.5 %
--- NOTE | 2023-05-12 07:22 | Hospitalist Progress Note ---
Date of Service May 12, 2023 Assessment & Plan (1) Allergic reaction: Plan: 27 F presented with difficulty breathing, presumed secondary to allergic reaction. intubation and ICU admission Allergic reaction/difficulty breathing -Symptoms started while at baseball game. Presumed culprit soybean oil and fries she consumed at said game. History of multiple intubations (?) Which raises suspicion for vocal cord/laryngeal weakness vs true anaphylactic reaction. -S/p multiple EpiPen administrations, epinephrine drip, IV Solu-Medrol, and DuoNeb treatments in the ambulance and in the ED prior to intubation. -Intubated in the ED following evaluation by ED physician, on famotidine, one dose of methylprednisolone, bronchodialators Hypokalemia -replete . Anxiety and depression -Patient on mirtazapine 15 mg p.o. at bedtime, with hydroxyzine 25 mg p.o. every 6 hours as needed for episodic anxiety. - Code: Full code (2) Serious allergic reaction with severe difficult breathing: (3) Anxiety and depression: (4) Hypokalemia: Admission and Anticipated Discharge Date Admission Date: May 11, 2023 Results & Data Results & Data Vital Signs (Past 12 Hours) Vital Signs Temp Pulse Pulse Resp BP BP Pulse Ox 05/12/23 06:02 83 26 H 98 05/12/23 06:02 129/82 05/12/23 06:00 98.2 F 78 26 H 99 05/12/23 06:00 133/81 05/12/23 05:30 97.2 F L 90 26 H 99 05/12/23 05:00 96.4 F L 76 26 H 99 05/12/23 05:00 120/73 05/12/23 04:00 97.3 F L 80 26 H 98 05/12/23 04:00 116/73 05/12/23 04:00 05/12/23 03:00 97.3 F L 80 26 H 99 05/12/23 03:00 119/72 05/12/23 02:30 97.3 F L 90 26 H 98 05/12/23 02:24 26 H 97 05/12/23 02:00 98.1 F 88 22 98 05/12/23 02:00 131/81 05/12/23 01:30 98.1 F 95 H 20 99 05/12/23 01:00 98.1 F 102 H 20 99 05/12/23 01:00 124/77 05/12/23 00:30 98.1 F 105 H 20 98 05/12/23 00:00 98.2 F 105 H 19 98 05/12/23 00:00 126/76 05/11/23 23:30 98.6 F 109 H 22 98 05/11/23 23:23 98.6 F 110 H 23 98 05/11/23 23:23 133/81 05/12/23 00:00 05/11/23 23:52 120 H 05/11/23 23:46 05/11/23 23:42 120 H 05/11/23 23:10 98.8 F 115 H 20 98 05/11/23 23:00 98.8 F 113 H 22 98 05/11/23 23:00 130/77 05/11/23 22:50 98.8 F 112 H 24 98 05/11/23 22:40 98.6 F 129 H 20 98 05/11/23 22:34 97.7 F 116 H 17 99 05/11/23 22:34 141/82 H 05/11/23 23:01 114 H 21 99 05/11/23 22:46 98.6 F 103 H 18 141/82 H 99 05/11/23 22:43 105 H 23 99 05/11/23 21:35 133 H 26 H 133/76 100 05/11/23 21:20 135 H 26 H 137/79 100 05/11/23 21:05 132 H 24 153/80 H 100 05/11/23 20:50 123 H 24 140/64 100 05/11/23 20:32 128 H 27 H 100 05/11/23 20:32 126 H 34 H 137/81 100 05/11/23 20:26 100 05/11/23 20:00 126 H 42 H 141/67 H 100 05/11/23 20:02 132 H 42 H 141/67 H 100 05/11/23 19:34 99.0 F 126 H 41 H 133/85 100 05/11/23 19:33 100 O2 Del Method O2 Flow Rate FiO2 05/12/23 06:02 05/12/23 06:02 05/12/23 06:00 05/12/23 06:00 05/12/23 05:30 05/12/23 05:00 05/12/23 05:00 05/12/23 04:00 05/12/23 04:00 05/12/23 04:00 35 05/12/23 03:00 05/12/23 03:00 05/12/23 02:30 05/12/23 02:24 35 05/12/23 02:00 Mechanical Vent 35 05/12/23 02:00 05/12/23 01:30 05/12/23 01:00 05/12/23 01:00 05/12/23 00:30 05/12/23 00:00 05/12/23 00:00 05/11/23 23:30 05/11/23 23:23 05/11/23 23:23 05/12/23 00:00 35 05/11/23 23:52 05/11/23 23:46 Mechanical Vent 35 05/11/23 23:42 05/11/23 23:10 05/11/23 23:00 05/11/23 23:00 05/11/23 22:50 Mechanical Vent 35 05/11/23 22:40 05/11/23 22:34 05/11/23 22:34 05/11/23 23:01 Mechanical Vent 35 05/11/23 22:46 Mechanical Vent 05/11/23 22:43 40 05/11/23 21:35 Mechanical Vent 05/11/23 21:20 Mechanical Vent 05/11/23 21:05 Mechanical Vent 05/11/23 20:50 Mechanical Vent 05/11/23 20:32 50 05/11/23 20:32 Mechanical Vent 05/11/23 20:26 05/11/23 20:00 Nasal Cannula 6 05/11/23 20:02 Nasal Cannula 6 05/11/23 19:34 Nasal Cannula 6 05/11/23 19:33 Nasal Cannula 6 PG Care Time/CCT Total # of Minutes Spent Total Time Spent with Patient: Total time spent is greater than 50% in coordination of care (as documented) at patient's floor/unit and/or counseling patient: Coding Diagnoses Allergic reaction T78.40XA Serious allergic reaction with severe difficult breathing R06.03; T78.40XA Anxiety and depression F41.9; F32.A Hypokalemia E87.6
[2023-05-12] MEDS ORDERED: FAMOTIDINE 20 MG in SYRINGE 3 ML IV SCH (08:00)
[2023-05-12] MEDS ORDERED: methylPREDNISolone 40 MG in SYRINGE 0 ML IV SCH (08:00)
--- NOTE | 2023-05-12 08:15 | XRay Report ---
XR chest 1V portable HISTORY: intubation COMPARISON: Chest 05/11/2023. FINDINGS: Endotracheal tube terminates 2.6 cm from the atul. Patchy bibasilar densities persist. Th ere are low lung volumes. The cardiac silhouette is mildly enlarged. No pneumothorax. There is mild c entral pulmonary vascular congestion without overt edema. IMPRESSION: 1. The endotracheal tube terminates 2.6 cm from the atul. 2. Patchy bibasilar densities and mild congestive change persists. ACT 112: Negative or not required by law. Electronically signed by: Gokul Blount M.D. 05/12/2023 8:14 AM
--- NOTE | 2023-05-12 08:17 | XRay Report ---
XR chest 1V portable HISTORY: eval ETT and OGT COMPARISON: Chest 05/11/2023. FINDINGS: The endotracheal tube terminates 2.4 cm from the atul. Nasogastric tube terminates in the stomach. Surgical clips within the right side the abdomen. No pneumothorax. No pleural effusions. Th e cardiac silhouette is mildly enlarged. Bibasilar densities have slightly improved. No evidence for pulmonary edema. IMPRESSION: 1. Satisfactory support line placement. 2. Slight improvement in the patchy bibasilar densities. ACT 112: Negative or not required by law. Electronically signed by: Gokul Blount M.D. 05/12/2023 8:16 AM
[2023-05-12] MEDS ORDERED: diphenhydrAMINE 50 MG/ML VIAL IV SCH (08:30)
[2023-05-12] MEDS ORDERED: SODIUM PHOSPHATE 3 MMOL/1 ML INFUSION IV STA (10:01)
[2023-05-12] MEDS ORDERED: SODIUM PHOSPHATE 15 MMOL in DEXTROSE 5% 250 ML IV ONE (10:15)
--- NOTE | 2023-05-12 12:48 | Critical Care Progress Note ---
Date of Service May 12, 2023 Assessment & Plan (1) Allergic reaction: (2) Anxiety and depression: Plan Reason Critically Ill: Arrives to EMD for complaints of allergic reaction, intubated for stridor and airway protection. To the ICU mechanically intubated and sedated Neuro - Anxiety/Depression CAM ICU: NEGATIVE -Follow-up with outpatient providers Cardiac - No acute needs - Patient is with normal blood pressures- currently on epinephrine infusion for concern of anaphylaxis - wean as able Respiratory - Allergic reaction/anaphylaxis, Mechanically ventilated and intubated - DDX: Anaphylaxis with airway compromise vs. VCD - She was induced with etomidate followed by succinylcholine- with sedation following the etomidate prior to paralytic- stridor did resolve and no obstruction of upper airway heard- ETcO2 remained 40s and SPo2 at 100% - Post intubation with normal PIPS and no auto-peep - Consider fiberoptic evaluation of vocal chords following extubation -The reported inspiratory stridor and findings during sedation and subsequent intubation by enlarge part not consistent with anaphylactic type reaction -Advised it may be prudent to follow-up with allergy and ENT GI - No acute needs RENAL/LYTES - Hypokalemia: Resolved - No acute needs ENDO - Elevated serum glucose without diagnosis of diabetes -Follow-up with primary care provider HEME - Allergic response/anaphylaxis: Resolved - Leukocytosis - likely stress response with normal NLR - EOS 0.26 (1.7%) - Will send RAST panel, Tryptase LINES/IV ACCESS - Benny ANGULO Continue use of these lines DVT PROPHYLAXIS -patient is extubated and now ambulatory DISPO: Patient stable for downgrade or discharge as she does not appear to have any recurrent evidence of a allergic reaction and is able to speak clearly feeling back to baseline Admission and Anticipated Discharge Date Admission Date: May 11, 2023 Subjective Reports that she feels much improved from yesterday. We discussed possibly following up with ENT and allergy, she declined stating she sees both and that from an allergy standpoint she has been diagnosed and allergy shots are not going to be offered. From an ear nose and throat standpoint she reports that she has been diagnosed with vocal cord dysfunction since middle school and can tell the difference between a vocal cord dysfunction episode versus a anaphylactic/allergy episode. Patient was able to tolerate eating lunch, was able to speak with on hospital telephone.. Physical Exam Physical Exam: General: Alert. nontoxic. Skin: Warm, dry, Head: Atraumatic, no evidence of angioedema nor swelling Ears, nose, mouth and throat: airway patent Cardiovascular: Normal peripheral perfusion Respiratory: no respiratory distress Gastrointestinal: Non distended Musculoskeletal: No deformity Results & Data Results & Data Vital Signs (Past 12 Hours) Vital Signs Temp Pulse Resp BP Pulse Ox O2 Del Method FiO2 05/12/23 12:00 102 H 19 97 05/12/23 12:00 121/84 05/12/23 11:00 94 H 17 97 05/12/23 11:00 113/74 05/12/23 12:00 111 H 05/12/23 10:00 111 H 21 96 05/12/23 10:00 122/79 05/12/23 09:00 88 10 L 97 05/12/23 09:00 132/72 05/12/23 08:23 95 H 26 H 97 30 05/12/23 08:00 85 16 93 05/12/23 08:00 122/70 05/12/23 07:00 79 26 H 98 05/12/23 07:00 129/77 05/12/23 06:45 36.4 C L 74 98 05/12/23 08:16 Mechanical Vent 35 05/12/23 08:00 35 05/12/23 08:00 83 05/12/23 06:02 83 26 H 98 05/12/23 06:02 129/82 05/12/23 06:00 36.8 C 78 26 H 99 05/12/23 06:00 133/81 05/12/23 05:30 36.2 C L 90 26 H 99 05/12/23 05:00 35.8 C L 76 26 H 99 05/12/23 05:00 120/73 05/12/23 04:00 36.3 C L 80 26 H 98 05/12/23 04:00 116/73 05/12/23 04:00 35 05/12/23 03:00 36.3 C L 80 26 H 99 05/12/23 03:00 119/72 05/12/23 02:30 36.3 C L 90 26 H 98 05/12/23 02:24 26 H 97 35 05/12/23 02:00 36.7 C 88 22 98 Mechanical Vent 35 08/20/23 02:00 131/81 05/12/23 01:30 36.7 C 95 H 20 99 05/12/23 01:00 36.7 C 102 H 20 99 05/12/23 01:00 124/77 Critical Care Results & Data Vital Signs (Past 12 Hours) Vital Signs Temp Pulse Resp BP Pulse Ox O2 Del Method FiO2 05/12/23 12:00 102 H 19 97 05/12/23 12:00 121/84 05/12/23 11:00 94 H 17 97 05/12/23 11:00 113/74 05/12/23 12:00 111 H 05/12/23 10:00 111 H 21 96 05/12/23 10:00 122/79 05/12/23 09:00 88 10 L 97 05/12/23 09:00 132/72 05/12/23 08:23 95 H 26 H 97 30 05/12/23 08:00 85 16 93 05/12/23 08:00 122/70 05/12/23 07:00 79 26 H 98 05/12/23 07:00 129/77 05/12/23 06:45 36.4 C L 74 98 05/12/23 08:16 Mechanical Vent 35 05/12/23 08:00 35 05/12/23 08:00 83 05/12/23 06:02 83 26 H 98 05/12/23 06:02 129/82 05/12/23 06:00 36.8 C 78 26 H 99 05/12/23 06:00 133/81 05/12/23 05:30 36.2 C L 90 26 H 99 05/12/23 05:00 35.8 C L 76 26 H 99 05/12/23 05:00 120/73 05/12/23 04:00 36.3 C L 80 26 H 98 05/12/23 04:00 116/73 05/12/23 04:00 35 05/12/23 03:00 36.3 C L 80 26 H 99 05/12/23 03:00 119/72 05/12/23 02:30 36.3 C L 90 26 H 98 05/12/23 02:24 26 H 97 35 05/12/23 02:00 36.7 C 88 22 98 Mechanical Vent 35 05/12/23 02:00 131/81 05/12/23 01:30 36.7 C 95 H 20 99 05/12/23 01:00 36.7 C 102 H 20 99 05/12/23 01:00 124/77 Lab & Micro Results (Past 24 Hours) RBC 4.54 M/uL (4.20-5.40) 05/12/23 WBC 15.93 K/ul (4.8-10.8) H 05/12/23 Hgb 11.2 g/dl (12.0-16.0) L 05/12/23 Hct 35.1 % (37.0-47.0) L 05/12/23 MCV 77.3 fL (80.0-100.0) L 05/12/23 MCH 24.7 pg (25.0-34.0) L 05/12/23 MCHC 31.9 g/dL (32.0-36.0) L 05/12/23 RDW Standard Deviation 41.1 fL (36.4-46.3) 05/12/23 RDW Coefficient of Variation 14.8 % (11.5-14.5) H 05/12/23 Plt Count 272 K/uL (130-400) 05/12/23 MPV 9.9 fL (9.4-12.4) 05/12/23 Neutrophils (%) (Auto) 94.5 % 05/12/23 Lymphocytes (%) (Auto) 4.1 % 05/12/23 Monocytes # (Auto) 0.13 K/uL (0.11-0.59) 05/12/23 Eosinophils # (Auto) 0.00 K/uL (0-0.50) 05/12/23 Immature Granulocyte % (Auto) 0.5 % 05/12/23 Neutrophils # (Auto) 15.04 K/uL (1.40-6.50) H 05/12/23 Lymphocytes # (Auto) 0.66 K/uL (1.2-3.4) L 05/12/23 Monocytes # (Auto) 0.13 K/uL (0.11-0.59) 05/12/23 Eosinophils # (Auto) 0.00 K/uL (0-0.50) 05/12/23 Basophils # (Auto) 0.02 K/uL (0-0.2) 05/12/23 Immature Granulocyte # (Auto) 0.08 K/uL (0.01-0.20) 3 Na 134 mmol/L (136-145) L 05/12/23 K 5.4 mmol/L (3.5-5.1) H 05/12/23 Cl 107 mmol/L (98-107) 05/12/23 CO2 21 mmol/L (21-32) 05/12/23 Anion Gap 6 (3-11) 05/12/23 BUN 17 mg/dl (6-23) 05/12/23 Creatinine 0.79 mg/dl (0.6-1.2) 05/12/23 Estimated GFR ( Amer) 117.2 ml/min 05/12/23 Estimated GFR (Non-Af Amer) 101.2 ml/min 05/12/23 BUN/Creatinine Ratio 21.5 (10-20) H 05/12/23 Glu 136 mg/dl (70-99(Fasting)) H 05/12/23 Ca 9.5 mg/dl (8.6-10.3) 05/12/23 Phosphorus Level 1.8 mg/dl (2.5-4.9) L 05/12/23 Total Bilirubin 0.3 mg/dl (0.2-1.0) 05/11/23 AST 24 U/L (13-39) 05/11/23 ALT 23 U/L (7-52) 05/11/23 Alkaline Phosphatase 78 U/L (34-104) 05/11/23 TP 7.4 gm/dl (6.0-8.3) 05/11/23 Albumin 4.5 gm/dl (3.4-5.0) 05/11/23 Globulin 2.9 gm/dl (2.5-4.0) 05/11/23 Albumin/Globulin Ratio 1.6 (0.9-2) 05/11/23 Mg 2.0 mg/dl (1.7-2.4) 05/12/23 04:42 Calcium Level 9.5 mg/dl (8.6-10.3) 05/12/23 04:42 Fredo Test Pass 05/12/23 02:14 Diagnostic Findings (Past 24 Hours) Chest X-Ray 05/11/23 19:29 XR chest 1V portable HISTORY: 27 years-old Female sob acute shortness of breath COMPARISON: None TECHNIQUE: AP view of the chest FINDINGS: Cardiac silhouette is upper limits of normal in size. Lungs are hypoinflated. Mild bibasilar densities. No pneumothorax, pleural effusion or overt pulmonary edema. Bones appear grossly intact. IMPRESSION: Mild bibasilar opacities likely secondary to atelectasis/summation density. Pneumonia considered less likely. ACT 112: Negative or not required by law. The above report was generated using voice recognition software. It may contain grammatical, syntax or spelling errors. Electronically signed by: Lavon Pepe M.D. 05/11/2023 7:49 PM Chest X-Ray 05/11/23 20:36 XR chest 1V portable HISTORY: intubation COMPARISON: Chest 05/11/2023. FINDINGS: Endotracheal tube terminates 2.6 cm from the atul. Patchy bibasilar densities persist. There are low lung volumes. The cardiac silhouette is mildly enlarged. No pneumothorax. There is mild central pulmonary vascular congestion without overt edema. IMPRESSION: 1. The endotracheal tube terminates 2.6 cm from the atul. 2. Patchy bibasilar densities and mild congestive change persists. ACT 112: Negative or not required by law. Electronically signed by: Gokul Blount M.D. 05/12/2023 8:14 AM Chest X-Ray 05/11/23 22:47 XR chest 1V portable HISTORY: eval ETT and OGT COMPARISON: Chest 05/11/2023. FINDINGS: The endotracheal tube terminates 2.4 cm from the atul. Nasogastric tube terminates in the stomach. Surgical clips within the right side the abdomen. No pneumothorax. No pleural effusions. The cardiac silhouette is mildly enlarged. Bibasilar densities have slightly improved. No evidence for pulmonary edema. IMPRESSION: 1. Satisfactory support line placement. 2. Slight improvement in the patchy bibasilar densities. ACT 112: Negative or not required by law. Electronically signed by: Gokul Blount M.D. 05/12/2023 8:16 AM I & O Totals 24 Hours 05/11/23 05/12/23 05/13/23 06:59 06:59 06:59 Intake Total 766.246 / 766.246 493.401 / 493.401 Output Total 500 / 500 Balance 266.246 / 266.246 493.401 / 493.401 Cumulative 05/11/23 19:17 thru 05/12/23 12:00 Intake Total 1259.647 Output Total 500 Balance 759.647 RT Ventilator Mngmt (Last Documented) Ventilator Ordered Settings Ventilator Support Mode Assist Control 05/12/23 08:23 Respiratory Rate 19 05/12/23 12:00 Ventilator Tidal Volume 315 05/12/23 08:23 Setting Minute Ventilation 8.2 05/12/23 08:23 Positive End Expiratory 5 05/12/23 08:23 Pressure Fraction of Inspired Oxygen 30 05/12/23 08:23 Machine Comment changes made post ABG 05/12/23 02:24 Ventilator - PT Measurements Respiratory Rate 19 Exhaled Tidal Volume 315 Minute Ventilation 8.2 Peak Inspiratory Airway 19 Pressure Plateau Pressure 16 Respiratory Cycle Inspiratory: 1:2.1 Expiratory Ratio Inspiratory Phase Time 0.75 End-Tidal CO2 55 Static Lung Compliance 28.64 Dynamic Lung Compliance 22.50 Normal Static Lung Compliance 46.00 Coding Level of Care Code 41685 SUB INP/OBS CARE 2/35MIN Diagnoses Allergic reaction T78.40XA Anxiety and depression F41.9; F32.A
--- NOTE | 2023-05-12 17:59 | Discharge Summary ---
Date of Service May 12, 2023 Admission HPI Per Admitting Provider Stefany is a 27-year-old woman with no significant past medical history who presented to the hospital from a baseball game via stretcher with a complaint of difficulty breathing and concern for possible allergic reaction. Per ED signout, she believes she may have consumed fries with soybean oil, which may have been the culprit as she has a nut allergy. In the ED, she received multiple doses of epinephrine via EpiPen, DuoNeb treatments, and IV Solu-Medrol. Initial CXR noted mild bibasilar opacities likely secondary to atelectasis/summation density. He was also noted to be stridorous on lung auscultation by ED physician. She was placed on an epinephrine drip and was intubated due to concern for airway compromise (patient had mentioned in the ED she had been intubated approximately 7 times, raising concerns for vocal cord weakness/injury). Critical care was then consulted for evaluationthey agreed patient should be transferred to the ICU for monitoring of her respiratory situation. Principal Diagnosis vocal cord spasm less likely allergic reaction Discharge Exam patient was seen at time of discharge she had no peripheral stigmata of allergic reaction she had no dysphonia or stridor Discharge Data Allergies Allergy/AdvReac Type Severity Reaction Status Date / Time peanut Allergy Severe Anaphylaxis Verified 05/11/23 20:19 soy Allergy Severe Anaphylaxis Verified 05/11/23 20:19 Consultations 05/11/23 20:37 Consult Control Chemist Routine 05/11/23 20:48 ED Decision to Admit Stat 05/11/23 20:50 Consult Control Chemist Routine Hospital Course (1) Spasm of vocal cords: patient strongly believes this was an allergic reaction however the patient stridorous respirations resolved once anesthesia was applied. Similarly she did not have any significant facial or tongue swelling or lip swelling and was easily ventilated without increased pulmonary pressures. Subsequently this is felt to be more likely secondary to vocal cord spasm however the patient strongly believes this is an allergic reaction was discharged with EpiPen's by her request (2) Allergic reaction: 27 F presented with difficulty breathing, presumed secondary to allergic reaction versus vocal cord spasm. intubation and ICU admission acute respiratory distress/difficulty breathing -Symptoms started while at baseball game. Presumed culprit soybean oil and fries she consumed at said game. History of multiple intubations (?) Which raises suspicion for vocal cord/laryngeal weakness vs true anaphylactic reaction. -S/p multiple EpiPen administrations, epinephrine drip, IV Solu-Medrol, and DuoNeb treatments in the ambulance and in the ED prior to intubation. -Intubated in the ED following evaluation by ED physician,with sedation the patient's stridorous respirations resolved Hypokalemia -replete . Anxiety and depression -Patient on mirtazapine 15 mg p.o. at bedtime, with hydroxyzine 25 mg p.o. every 6 hours as needed for episodic anxiety. 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, call for first available appointment Pending Studies at Discharge: Yes Studies:: allergy tests were sent and not returned yet Stand-Alone Forms: My Seriously, Smoking Cessation Medications and DC Order Prescriptions: Continued hydroxyzine HCl 25 mg tablet 25 mg PO Q6 PRN (Reason: Anxiety) mirtazapine 15 mg tablet 15 mg PO HS paroxetine HCl 30 mg tablet 30 mg PO DAILY diphenhydramine HCl [Banophen] 25 mg capsule 25 mg PO Q6 PRN (Reason: allergies) albuterol sulfate 90 mcg/actuation HFA aerosol inhaler 2 puff INHALATION Q6 PRN (Reason: Shortness Of Breath Or Wheezing) [id number]-VD 2-30-10 mg/5 mL syrup 10 ml PO Q6 PRN (Reason: congestion/cough) epinephrine 0.3 mg/0.3 mL auto-injector 0.3 mg IM ONCE PRN (Reason: Anaphylaxis) Qty: 2 3RF Discharge Orders: Discharge Order (Routine); Ordered 05/12/23 Ordered By: Dayton Canales Admission Data Admit Date/Time: 05/11/23 20:50 Attending Provider: Dayton Canales Admit Provider: Wade Valverde Primary Care Provider: KARSTEN VASQUES Other Providers: Alex Holly ; Wade Valverde ; Curt Link ; Isaac Lemos ; Juan Nolasco ; Nikhil Mendieta ; Abdulkadir Tyler ; Elina Aguilar ; Favian Macedo ; Sabine Ribeiro ; Marcelina Sanderson ; Boogie Michel Other Interventions: Discharge Summary Assessment (RN) Last Done: 05/12/23 15:43 Coding Level of Care Code 57943 INP/OBS DISCH >30 MIN Diagnoses Spasm of vocal cords J38.5 Allergic reaction T78.40XA
--- NOTE | 2023-05-12 19:28 | Billing Data ---
Date of Service May 12, 2023 Coding Level of Care Code 43210 CRITICAL CARE
--- NOTE | 2023-05-13 09:20 | Electrocardiogram Report ---
Test Reason : Blood Pressure : / mmHG Vent. Rate : 132 BPM Atrial Rate : 132 BPM P-R Int : 176 ms QRS Dur : 084 ms QT Int : 276 ms P-R-T Axes : 064 004 -01 degrees QTc Int : 408 ms Poor data quality, interpretation may be adversely affected Sinus tachycardia Otherwise normal ECG No previous ECGs available Confirmed by Braulio Magaña ([id number]) on 05/13/2023 9:20:06 AM Referred By: REFERRED SELF Confirmed By:Braulio Magaña
== END 2023-05-12 15:51 | disposition home or self-care (01) | DRG 155 ==
LOC: ED 19:21 → 1E 20:50 → SUATTDRO 20:50 → 1E 22:27